=== PATIENT | male | born 1980 | race Hispanic/Latino ===

== ENCOUNTER 2025-06-03 17:46 | Emergency (ER) | payer BC ==
[~2025-06-03] VITALS: Ht 167.6 cm; Wt 115.2 kg
[2025-06-03] MEDS ORDERED: LEVO750T68 PO (18:35)
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
[2025-06-03] MEDS: BACITRACIN 1 EACH PACKET TP ONE ×2 (18:37→18:47)
[2025-06-03] MEDS: LIDOCAINE HCL-MPF 1% 2ML VIAL IV ONE (19:02)
[2025-06-03 19:05] VITALS: BP 142/74; PULSE 78; RESP 18; TEMP 98.6; O2SAT 98
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
== END 2025-06-03 19:20 | disposition home or self-care (01) ==
LOC: EDH 17:46
DX: S41.112A Laceration without foreign body of left upper arm, initial encounter (principal); E11.9 Type 2 diabetes mellitus without complications; Z88.1 Allergy status to other antibiotic agents; Y04.0XXA Assault by unarmed brawl or fight, initial encounter; Y93.89 Activity, other specified; Y92.89 Other specified places as the place of occurrence of the external cause; Y99.8 Other external cause status
CPT/HCPCS: 99284; 12035; 96374; 96375; 90714; 90471; J1956; J2270; J2405